=== PATIENT | female | born 1950 | race Caucasian/White ===

== ENCOUNTER → 2019-02-24 | Outpatient (CLI) | payer OTHER ==
[~2019-02-24] VITALS: Ht 160 cm; Wt 95.3 kg
[~2019-02-24] MED LIST: AMLODIPINE BESY10 MG PO; CALCIUM 500 +1 EAC5 PO; COLESTID1 GM PO; CYMBALTA60 MG PO; DESIPRAMINE 2525 M1 PO; GABAPENTIN 100100 MG PO; HYDROXYZINE PAM50 MG PO; LAMICTAL200 MG PO; LASIX 20 MG TAB20 MG PO; LATUDA20 MG PO; MULTIVITAMINS1 EAC7 PO; OMEPRAZOLE40 MG PO; PRAVACHOL20 MG PO; REQUIP 1 MG TABL1 M1 PO; SYNTHROID137 MC1 PO; TOPROL XL25 MG PO; TRAMADOL 50 MG50 MG PO; ZANAFLEX4 MG PO; ZOFRAN ODT4 MG PO
--- NOTE | 2019-02-25 16:06 | PATH ---
[facility] [address] [place] [address] PATHOLOGY RPT PROCEDURE Name: ADARSH TAY Room #: REG [facility]..#: [id number] ������������������ Admission: 02/24/19 ������������������ Date of : 54 Discharge: Report #: [id number] Path Case #: [id number] [facility] Accession Number: [id number] . 01 Material submitted: . PART A: colon - ASCENDING COLON POLYPS X2. Modifiers: ascending PART B: colon - RANDOM RIGHT COLON. Modifiers: right PART C: colon - RANDOM LEFT COLON. Modifiers: left . 01 Clinical history: . Pre-OP DX: Diarrhea Post-OP DX: Polyps Rule out microscopic colitis, IBS . 02 Diagnosis: A. Polyp x2, ascending colon polyps, endoscopic biopsy: - All fragments sampled showing tubular adenoma. - Negative for high-grade dysplasia. . B. Large intestine, random right colon, endoscopic biopsy: - Nonspecific reactive changes. - Negative for acute cryptitis. - Negative for microscopic colitis. - Negative for dysplasia or malignancy. . C. Large intestine mucosa, random left colon, rule out microscopic colitis, endoscopic biopsy: - Nonspecific reactive changes. - Negative for acute cryptitis. - Negative for microscopic colitis. - Negative for dysplasia or malignancy. (IUV:carpenter maintenance; 02/25/2019) MBR/02/25/2019 . 02 Electronically signed: . Shanique Barton MD, Pathologist NPI- [id number] . 01 Gross description: . A. Received in formalin labeled "Adarsh Tay, ascending colon polyp," and additionally labeled on the requisition as "x2," are 2 segments of gtz soft tissue measuring 0.9 x 0.2 x 0.2 cm in aggregate dimensions and ranging from 0.4 to 0.5 cm in maximum dimension. The specimen is submitted entirely in cassette A1. . B. Received in formalin labeled "Adarsh Tay, random right colon BX," are 5 segments of gtz soft tissue measuring 1.5 x 1.4 x 0.2 [place] [address] PATHOLOGY RPT PROCEDURE Name: ADARSH TAY E [id number] ������������������ Admission: 02/24/19 ������������������ Date of : 54 Discharge: Report #: [id number] Path Case #: [id number] aggregate dimensions and ranging from 0.1 to 0.7 cm in maximum dimension. The specimen is submitted entirely in cassette B1. . C. Received in formalin labeled "Adarsh Tay, random left colon BX," are 6 segments of gtz soft tissue measuring 1.4 x 1.3 x 0.3 cm in aggregate dimensions and ranging from 0.2 to 0.5 cm in maximum dimension. The specimen is submitted entirely in cassette C1. (TSD; 02/24/2019) TOB/TOB . 02 Pathologist provided ICD-10: D12.2 . 02 CPT . 887573, [id number], [id number] Specimen Comment: A courtesy copy of this report has been sent to Specimen Comment: [phone]. Specimen Comment: Report sent to Performed at: [address], [place] [id number] MD Dawit Cornell MD Phone: [phone] Performed at: [address] [id number] MD Shanique Barton MD Phone: [phone]
== END | disposition home or self-care (01) ==
LOC: EDSEX → GI 08:26
DX: D12.2 Benign neoplasm of ascending colon (principal); K57.30 Diverticulosis of large intestine without perforation or abscess without bleeding; F31.9 Bipolar disorder, unspecified; Z90.710 Acquired absence of both cervix and uterus; Z88.8 Allergy status to other drugs, medicaments and biological substances; Z88.0 Allergy status to penicillin; Z88.2 Allergy status to sulfonamides; Z98.890 Other specified postprocedural states; Z79.899 Other long term (current) drug therapy
CPT/HCPCS: 62110; 62900

== ENCOUNTER → 2019-12-23 | Outpatient (CLI) | payer OTHER | END | disposition home or self-care (01) | LOC: GI 09:50 | DX: K22.4 Dyskinesia of esophagus (principal); Z98.890 Other specified postprocedural states; Z79.899 Other long term (current) drug therapy ==